=== PATIENT | male | born 2000 | race Caucasian/White ===

== ENCOUNTER 2023-01-01 11:47 | Emergency (ER) | payer SELFPAY ==
[~2023-01-01] VITALS: Ht 182.9 cm; Wt 111.1 kg
[2023-01-01] MEDS ORDERED: IBUPROFEN600 MG PO (13:09)
== END 2023-01-01 13:22 | disposition home or self-care (01) ==
LOC: ER 11:59
DX: S62.397A Other fracture of fifth metacarpal bone, left hand, initial encounter for closed fracture (principal); Y04.0XXA Assault by unarmed brawl or fight, initial encounter; Y92.89 Other specified places as the place of occurrence of the external cause
CPT/HCPCS: 99283